=== PATIENT | male | born 1985 | race Caucasian/White ===

== ENCOUNTER 2019-04-30 15:48 | Emergency (ER) | payer SELFPAY ==
[~2019-04-30] VITALS: Wt 77.1 kg
[~2019-04-30 15:48] MED LIST: ANAPROX DS550 MG PO; BIAXIN500 MG PO; CEPHALEXIN500 M1 PO; COMPAZINE10 MG PO; GEODON40 MG PO; HYDROCODONE BIT1 T11 PO; KEFLEX500 MG PO; MINIPRESS2 M1 PO; MOTRIN800 MG PO; Motrin,Rufen800 MG PO; NAPROSYN500 MG PO; NKHM; PEN-VK500 MG PO; PENICILLIN-VK500 M1 PO; PERIDEX 480 ML480 ML PO; ROBAXIN500 MG PO; TOBRADEX 0.1%-0.5 ML OPH; VICODIN ES 7501 TAB PO; VISTARIL50 MG PO; ZITHROMAX Z PA250 MG PO
[2019-04-30 16:36] LABS: BASO % 0.4 % (0.0-1.0); EOS # 0.1 10*3/uL (0.0-0.4); EOS % 1.7 % (1.0-4.0); HEMATOCRIT 47.4 % (42.0-52.0); HEMOGLOBIN 15.5 g/dl (14.0-18.0); LYMPH % 25.7 % (27.0-41.0); MEAN CELL VOLUME 89.3 fl (80.0-94.0); MEAN CORPUSCULAR HGB 29.2 pg (27.0-31.0); MEAN CORPUSCULAR HGB CONC 32.7 g/dl (33.0-37.0); MEAN PLATELET VOLUME 9.2 fl (9.6-12.3); MONO # 0.8 10*3/uL (0.1-1.0); MONO % 10.1 % (3.0-9.0); NEUT # 4.7 10*3/uL (2.3-7.9); NEUT % 61.7 % (47.0-73.0); PLATELET COUNT AUTOMATED 234 10*3/uL (130-400); RED BLOOD COUNT 5.31 10*6/uL (4.50-5.90); RED CELL DISTRI WIDTH 13.2 % (0-14.5); WHITE BLOOD COUNT 7.7 10*3/uL (4.8-10.8)
[2019-04-30 16:49] LABS: ACT PARTIAL THROMBO TIME 26.7 SECONDS (20.0-32.1); INTERNATIONAL NORM RATIO 0.9 (2.0-3.5)
[2019-04-30 16:51] LABS: ALBUMIN 3.9 gm/dl (3.1-4.5); ALKALINE PHOSPHATASE 92 U/L (45-117); BUN 13 mg/dl (7-24); CHLORIDE 108 mmol/L (98-107); CREATININE 1.13 mg/dL (0.70-1.30); ETHYL ALCOHOL < 3.0 mg/dl (<3); LIPASE 1711 U/L (73-393); POTASSIUM 4.2 mmol/L (3.5-5.1); SGOT/AST 35 IU/L (3-35); SGPT/ALT 71 U/L (12-78); SODIUM 140 mmol/L (136-145); TOTAL PROTEIN 7.5 gm/dL (6.4-8.2); TROPONIN I < 0.015 ng/ml (<0.045)
[2019-04-30 16:52] LABS: ACETAMINOPHEN (TYLENOL) < 5.0 ug/ml (10-30)
[2019-04-30 17:47] LABS: BILIRUBIN NEGATIVE (NEGATIVE); BLOOD NEGATIVE (NEGATIVE); CLARITY CLEAR (CLEAR); COLOR YELLOW (YELLOW); GLUCOSE NEGATIVE (NEGATIVE); KETONE TRACE (NEGATIVE); LEUKO ESTERASE NEGATIVE (NEGATIVE); NITRITE NEGATIVE (NEGATIVE); PH 7.5 (5.0-9.0); SPECIFIC GRAVITY 1.025 (1.005-1.030)
[2019-04-30 17:50] LABS: URINE AMPHETAMINES < 1000 (1000ng/ml); URINE BARBITURATES < 200 (200ng/ml); URINE BENZODIAZEPINES < 200 (200ng/ml); URINE CANNABINOIDS (THC) > 50 (50ng/ml); URINE COCAINE > 300 (300ng/ml); URINE METHADONE < 300 (300ng/ml); URINE OPIATES < 300 (300ng/ml); URINE PHENCYCLIDINE < 25 (25ng/ml)
[2019-04-30 17:55] LABS: BACTERIA TRACE; MUCOUS 1+; WBC 0-2 wbc/hpf (0-5)
[2019-05-02 09:44] VITALS: BP 117/53
== END 2019-05-02 08:00 | disposition home health service (06) ==
LOC: ED 15:48
PROVIDERS: Nurse Practitioner Family
DX: R45.851 Suicidal ideations (principal); F31.9 Bipolar disorder, unspecified; F20.9 Schizophrenia, unspecified; F17.200 Nicotine dependence, unspecified, uncomplicated; R79.1 Abnormal coagulation profile

== ENCOUNTER 2019-10-30 11:55 | Emergency (ER) | payer OTHER ==
[~2019-10-30] VITALS: Ht 177.8 cm; Wt 75.7 kg
[2019-10-30 12:01] VITALS: BP 121/77
[2019-10-30] MEDS ORDERED: SEPTDS PO (12:14)
[2019-10-30] MEDS ORDERED: CEPHALEXIN500 M1 PO (12:14)
[2019-10-30] MEDS ORDERED: Motrin,Rufen800 MG PO (12:14)
== END 2019-10-30 12:30 | disposition home or self-care (01) ==
LOC: ED 11:55
DX: L02.416 Cutaneous abscess of left lower limb (principal); F17.200 Nicotine dependence, unspecified, uncomplicated

== ENCOUNTER 2020-06-09 09:19 | Emergency (ER) | payer OTHER ==
[~2020-06-09] VITALS: Wt 78.0 kg
[~2020-06-09 09:19] MED LIST changes: +SEPTDS PO
[2020-06-09 09:24] VITALS: BP 125/89
[2020-06-09] MEDS ORDERED: TYLENOL325 M1 PO (09:49)
[2020-06-09] MEDS ORDERED: CYCLOBENZAPRINE10 MG PO (09:49)
[2020-06-09] MEDS ORDERED: NAPROXEN250 MG PO (09:49)
== END 2020-06-09 10:06 | disposition home or self-care (01) ==
LOC: ED 09:19
DX: S49.92XA Unspecified injury of left shoulder and upper arm, initial encounter (principal); F31.9 Bipolar disorder, unspecified; F17.200 Nicotine dependence, unspecified, uncomplicated; Z79.899 Other long term (current) drug therapy; X58.XXXA Exposure to other specified factors, initial encounter; Y93.89 Activity, other specified; Y92.89 Other specified places as the place of occurrence of the external cause; Y99.8 Other external cause status

== ENCOUNTER → 2020-06-13 | Outpatient (CLI) | payer OTHER ==
[~2020-06-13] MED LIST changes: +CLINDAMYCIN HC300 MG PO; +CYCLOBENZAPRINE10 MG PO; +NAPROXEN250 MG PO; +TYLENOL325 M1 PO
== END | disposition home or self-care (01) ==
LOC: RAD 11:57
PROVIDERS: ATTEND Family Medicine
DX: M25.512 Pain in left shoulder (principal)

== ENCOUNTER → 2020-07-04 | Outpatient (CLI) | payer OTHER | END | disposition home or self-care (01) | LOC: MRI 11:00 | PROVIDERS: ATTEND Family Medicine | DX: S46.812A Strain of other muscles, fascia and tendons at shoulder and upper arm level, left arm, initial encounter (principal); S43.432A Superior glenoid labrum lesion of left shoulder, initial encounter; M19.011 Primary osteoarthritis, right shoulder; M77.8 Other enthesopathies, not elsewhere classified; M75.52 Bursitis of left shoulder; M25.811 Other specified joint disorders, right shoulder; M25.812 Other specified joint disorders, left shoulder; M75.112 Incomplete rotator cuff tear or rupture of left shoulder, not specified as traumatic; X58.XXXA Exposure to other specified factors, initial encounter; Y93.89 Activity, other specified; Y92.89 Other specified places as the place of occurrence of the external cause; Y99.8 Other external cause status ==

== ENCOUNTER 2020-07-08 15:28 | Emergency (ER) | payer OTHER ==
[~2020-07-08 15:28] MED LIST changes: -CLINDAMYCIN HC300 MG PO
[2020-07-08 15:31] VITALS: BP 136/67
[2020-07-08] MEDS ORDERED: TYLENOL325 M1 PO (17:47)
[2020-07-08] MEDS ORDERED: NAPROSYN500 MG PO (17:47)
[2020-07-08] MEDS ORDERED: CLINDAMYCIN HC300 MG PO (17:47)
== END 2020-07-08 17:51 | disposition left against medical advice (07) ==
LOC: ED 15:28
DX: K13.0 Diseases of lips (principal); F31.9 Bipolar disorder, unspecified; F17.200 Nicotine dependence, unspecified, uncomplicated; Z79.2 Long term (current) use of antibiotics; Z79.899 Other long term (current) drug therapy

== ENCOUNTER 2020-08-25 05:43 | Emergency (ER) | payer OTHER ==
[~2020-08-25] VITALS: Ht 180.3 cm; Wt 77.6 kg
[~2020-08-25 05:43] MED LIST changes: +CLINDAMYCIN HC300 MG PO
[2020-08-25 07:51] VITALS: BP 106/54
== END 2020-08-25 07:51 | disposition home or self-care (01) ==
LOC: ED 05:43
DX: S51.812A Laceration without foreign body of left forearm, initial encounter (principal); F10.129 Alcohol abuse with intoxication, unspecified; F17.200 Nicotine dependence, unspecified, uncomplicated; Z79.899 Other long term (current) drug therapy; X58.XXXA Exposure to other specified factors, initial encounter; Y93.89 Activity, other specified; Y92.89 Other specified places as the place of occurrence of the external cause; Y90.0 Blood alcohol level of less than 20 mg/100 ml

== ENCOUNTER 2020-09-08 08:58 | Emergency (ER) | payer OTHER ==
[2020-09-08 09:10] VITALS: BP 130/65
== END 2020-09-08 09:33 | disposition home or self-care (01) ==
LOC: ED 08:58
DX: S51.812D Laceration without foreign body of left forearm, subsequent encounter (principal); F17.200 Nicotine dependence, unspecified, uncomplicated; X58.XXXD Exposure to other specified factors, subsequent encounter